=== PATIENT | female | born 2005 | race Caucasian/White ===

== ENCOUNTER 2025-03-03 11:19 | Emergency (ER) | payer OTHER ==
[2025-03-03] MEDS ORDERED: Ondansetron PF 4 MG/2 ML Vial ONE (11:33)
[2025-03-03] MEDS ORDERED: Famotidine/PF 20 mg/2ml Vial ONE (11:33)
[2025-03-03 11:56] LABS: #Basophils 0.03 10x3/uL (0.0-0.2); #Eosinophils 0.35 10x3/uL (0.0-0.7); #Monocytes 0.31 10x3/uL (0.11-0.59); #Neutrophils 6.07 10x3/uL (1.40-6.50); %Basophils 0.3 % (0.0-1.0); %Eosinophils 4.1 % (0.0-10.0); %Lymphocytes 21.3 % (28.0-48.0); %Monocytes 3.6 % (0.0-4.0); %Neutrophils 70.5 % (31.0-61.0); Hematocrit 33.8 % (36.0-47.0); Hemoglobin 11.4 g/dL (12.0-16.0); Mean Corpuscular Hemoglobin 32.3 pg (25.0-35.0); Mean Corpuscular Volume 95.8 fL (78.0-98.0); Platelet Count 297 10x3/uL (130-400); Red Blood Cell (RBC) Count 3.53 mill/uL (4.00-5.20); White Blood Cell (WBC) Count 8.61 10x3/uL (4.8-10.8)
[2025-03-03 12:11] LABS: INR-International Normal Ratio 1.1; Prothrombin Time 14.0 sec (12.0-14.7)
[2025-03-03 12:17] LABS: CAUTI Indications for Culture Pelvic or flank pain; Glucose, Urine (Dipstick) Normal (Negative); Leukocyte 500 Leu/uL (Negative); Protein, Urine (Dipstick) Negative (Neg-Trace); RBC/HPF 0-3 HPF (0-3); Specific Gravity, Urine 1.016 (1.002-1.036)
[2025-03-03 12:25] LABS: Bacteria/HPF 2+ HPF (None Seen)
[2025-03-03 12:25] LABS: ALT (SGPT) Less than 7 U/L (Less than 34); AST (SGOT) 13 U/L (11-34); Albumin 3.3 g/dL (3.1-4.5); Alkaline Phosphatase 53 U/L (40-100); Anion Gap 12 mmol/L (10-20); BUN (Urea Nitrogen) Less than 4 mg/dL (7.0-18.7); Bilirubin, Total 0.4 mg/dL (0.3-1.2); Calc. Creatinine Clearance 0 mL/min (70-130); Calcium 8.8 mg/dL (7.8-10.44); Carbon Dioxide 21 mmol/L (22-29); Chloride 107 mmol/L (98-107); Globulin 3.6 g/dL (2.4-3.5); Glucose 143 mg/dL (70-105); Lipase 16 U/L (8-78); Potassium 3.3 mmol/L (3.5-5.1); Sodium 137 mmol/L (136-145)
[2025-03-03 12:26] LABS: Urine Culture Reflex No No
== END 2025-03-03 15:38 | disposition home or self-care (01) ==
LOC: ERS 11:19
DX: K92.0 Hematemesis (principal); N39.0 Urinary tract infection, site not specified
CPT/HCPCS: 80053; 81001; 83690; 85025; 85610; 96374; 96375

== ENCOUNTER 2025-06-06 17:33 | Emergency (ER) | payer OTHER | END 2025-06-06 18:47 | disposition home or self-care (01) | LOC: ERS 17:33 | DX: O99.513 Diseases of the respiratory system complicating pregnancy, third trimester (principal); J00 Acute nasopharyngitis [common cold]; Z3A.30 30 weeks gestation of pregnancy | CPT/HCPCS: 87428 ==